=== PATIENT | male | born 1965 | race African-American/Black ===

== ENCOUNTER 2021-12-13 12:06 | Emergency (ER) | payer BC ==
[~2021-12-13] VITALS: Ht 167.6 cm; Wt 77.0 kg
[2021-12-13] MEDS ORDERED: CYCLOBENZAPRINE 10MG TABLET PO ONE (14:15)
[2021-12-13] MEDS ORDERED: KETOROLAC 15MG/ML VIAL IV ONE (14:15)
[2021-12-13 14:17] LABS: BASOPHILS % 0.2 % (0.0-2.0); EOSINOPHILS % 0.2 % (0.0-5.0); HEMATOCRIT. 44.4 % (42.0-52.0); HEMOGLOBIN. 14.6 g/dL (14.0-18.0); LYMPHOCYTES % 15.1 % (20.0-50.0); MEAN CORPUSCULAR HEMOGLOBIN 30.9 pg (28.0-32.0); MEAN CORPUSCULAR VOLUME 93.7 fL (80.0-94.0); MEAN PLATELET VOLUME 7.2 fl (7.4-10.4); MONOCYTES % 12.1 % (2.0-8.0); NEUTROPHILS % 72.4 % (40.0-76.0); PLATELET 273 x1000/uL (130-400); RED BLOOD CELL COUNT 4.73 mill/uL (4.7-6.1)
[2021-12-13 14:24] LABS: CHLORIDE 107 mEq/L (98-107)
[2021-12-13 14:27] LABS: ETHANOL BLOOD < 10 mg/dL
[2021-12-13 14:42] VITALS: BP 149/91
[2021-12-13 15:27] LABS: *AMPHETAMINES SCREEN URINE NEGATIVE (NEGATIVE); *BARBITURATES SCREEN URINE NEGATIVE (NEGATIVE); *BENZODIAZEPINES SCREEN URINE NEGATIVE (NEGATIVE); *COCAINE SCREEN URINE NEGATIVE (NEGATIVE); METHADONE URINE SCREEN NEGATIVE (NEGATIVE); OPIATES URINE SCREEN NEGATIVE (NEGATIVE)
[2021-12-13 15:28] LABS: CANNABINOID URINE SCREEN NEGATIVE (NEGATIVE); PHENCYCLIDINE URINE SCREEN NEGATIVE (NEGATIVE)
[2021-12-13] MEDS ORDERED: CYCL10TA7 MT (17:30)
[2021-12-13] MEDS ORDERED: IBUP-2028 MT (17:30)
== END 2021-12-13 17:50 | disposition home or self-care (01) ==
LOC: ER 12:27
DX: M79.18 Myalgia, other site (principal); R07.9 Chest pain, unspecified; Z87.19 Personal history of other diseases of the digestive system
CPT/HCPCS: 36415; 71045; 80053; 80305; 80320; 83880; 84484; 85025; 93005; 96374; 99285; J1885; G0480

== ENCOUNTER 2022-02-15 12:51 | Emergency (ER) | payer BC ==
[~2022-02-15] VITALS: Ht 170.2 cm; Wt 75.0 kg
[~2022-02-15 12:51] MED LIST: CYCL10TA21 MT; IBUP-2028 MT
[2022-02-15 13:57] VITALS: BP 127/88
== END 2022-02-15 13:58 | disposition home or self-care (01) ==
LOC: ER 12:51
DX: R20.0 Anesthesia of skin (principal); R20.2 Paresthesia of skin; H91.91 Unspecified hearing loss, right ear
CPT/HCPCS: 99281